=== PATIENT | male | born 1950 | race Caucasian/White ===

== ENCOUNTER 2023-05-17 20:29 | Emergency (ER) | payer BC ==
[~2023-05-17] VITALS: Ht 172.7 cm; Wt 83.9 kg
[2023-05-17 20:50] VITALS: BP_SYST 140; PULSE 75; RESP 18; TEMP 97.8; O2SAT 100
--- NOTE | 2023-05-17 20:58 | NUR ---
Patient triaged and placed BED2. VSS and patient appears in no acute distress at this time. Accompanied by daughter, , and DANILO ZARAGOZA notified of need for MSE.C/O Hyperglycemia bs-418 at home rechecked here on assessment BS-375, Report to Carlos GONZALEZ
[2023-05-17] MEDS ORDERED: NACL 0.9% 1,000 ML IV ONE (21:00)
--- NOTE | 2023-05-17 21:00 | NUR ---
daughter at the [facility]
[2023-05-17 21:12] LABS: BASOPHILS # (AUTO) 0.1 K/uL (0.0-0.2)
[2023-05-17 21:17] LABS: EOSINOPHILS % (AUTO) 0.5 % (0.0-4.0)
--- NOTE | 2023-05-17 21:30 | NUR ---
PT WENT TO REST ROOM ACCOMPANY BY DAUGHTER
[2023-05-17 21:33] LABS: BASOPHILS % (AUTO) 0.6 % (0.0-2.0); HEMATOCRIT 35.1 % (36-54); HEMOGLOBIN 11.6 g/dL (14.0-18.0); LYMPHOCYTES # (AUTO) 1.8 K/uL (1.0-5.5); LYMPHOCYTES % (AUTO) 19.9 % (20.5-51.5); MEAN CORPUSCULAR HEMOGLOBIN 31 pg (27-31); MEAN CORPUSCULAR HGB CONC 33 % (32-36); MEAN CORPUSCULAR VOLUME 94 fL (79.0-98.0); MONOCYTES # (AUTO) 0.6 K/uL (0.0-1.0); MONOCYTES % (AUTO) 6.7 % (1.7-9.3); NEUTROPHILS # (AUTO) 6.5 K/uL (1.8-7.7); NEUTROPHILS % (AUTO) 72.3 % (40.0-70.0); PLATELET COUNT (AUTO) 231 K/uL (130-430); RED BLOOD CELL COUNT(AUTO) 3.72 MIL/uL (4.2-6.2); RED CELL DISTRIBUTION WIDTH 13.6 % (9.0-15.0); WHITE BLOOD COUNT (AUTO) 8.9 K/uL (4.8-10.8)
[2023-05-17 21:47] LABS: ALANINE AMINOTRANSFERASE 16 U/L (12-78); ALBUMIN 2.9 g/dL (3.4-4.8); ANION GAP 9 (5-15); ASPARTATE AMINOTRANSFERASE 7 U/L (10-37); CALCIUM 8.1 mg/dL (8.4-11.0); CHLORIDE 102 mmol/L (98-107); CREATININE 1.76 mg/dL (0.55-1.30); GLUCOSE 369 mg/dL (74-106); LIPASE 138 U/L (73-393); TOTAL BILIRUBIN 0.3 mg/dL (0.0-1.0); UREA NITROGEN, BLOOD 45 mg/dL (8-21)
[2023-05-17 23:10] VITALS: BP_SYST 140; PULSE 75; RESP 18; TEMP 97.8
--- NOTE | 2023-05-17 23:11 | NUR ---
Patient given written and verbal discharge instructions and verbalizes understanding. ER MD discussed with patient the results and treatment provided. Patient in stable condition. ID arm band removed. IV catheter removed intact and dressing applied, no active bleeDING. Patient educated on pain management and to follow up with PMD. Pain Scale 0/10 Opportunity for questions provided and answered. Medication side effect fact sheet provided.
[2023-05-18 01:10] VITALS: O2SAT 100
== END 2023-05-17 23:10 | disposition home or self-care (01) ==
LOC: SED 20:29
DX: E11.65 Type 2 diabetes mellitus with hyperglycemia (principal); I12.9 Hypertensive chronic kidney disease with stage 1 through stage 4 chronic kidney disease, or unspecified chronic kidney disease; E11.22 Type 2 diabetes mellitus with diabetic chronic kidney disease; N18.9 Chronic kidney disease, unspecified; E78.5 Hyperlipidemia, unspecified; Z79.899 Other long term (current) drug therapy
CPT/HCPCS: 99283; 96360; 80053; 83690; 85025; 36415; J7030